=== PATIENT | female | born 1970 | race Caucasian/White ===

== ENCOUNTER 2019-03-08 08:53 | Emergency (ER) | payer OTHER ==
[~2019-03-08] VITALS: Ht 170.1 cm; Wt 68.0 kg
[~2019-03-08 08:53] MED LIST: ZOFRAN4 MG PO
[2019-03-08 09:41] LABS: BASO # 0.1 10*3/uL (0.0-0.1); BASO % 0.4 % (0.0-1.0); EOS % 0.2 % (1.0-4.0); HEMATOCRIT 43.6 % (37.0-47.0); HEMOGLOBIN 14.5 g/dl (12.0-16.0); LYMPH # 2.5 10*3/uL (1.3-4.4); LYMPH % 19.7 % (27.0-41.0); MEAN CORPUSCULAR HGB 30.3 pg (27.0-31.0); MEAN CORPUSCULAR HGB CONC 33.3 g/dl (33.0-37.0); MEAN PLATELET VOLUME 10.3 fl (9.6-12.3); MONO % 7.6 % (3.0-9.0); NEUT # 9.1 10*3/uL (2.3-7.9); NEUT % 71.6 % (47.0-73.0); PLATELET COUNT AUTOMATED 415 10*3/uL (130-400); RED BLOOD COUNT 4.79 10*6/uL (4.10-5.10); RED CELL DISTRI WIDTH 13.1 % (0-14.5); WHITE BLOOD COUNT 12.7 10*3/uL (4.8-10.8)
[2019-03-08 09:55] LABS: ALBUMIN 3.3 gm/dl (3.1-4.5); ALKALINE PHOSPHATASE 251 U/L (45-117); BUN 4 mg/dl (7-24); CHLORIDE 102 mmol/L (98-107); CREATININE 0.59 mg/dL (0.55-1.02); LIPASE 333 U/L (73-393); POTASSIUM 3.6 mmol/L (3.5-5.1); SGOT/AST 61 IU/L (3-35); SGPT/ALT 60 U/L (12-78); SODIUM 136 mmol/L (136-145); TOTAL PROTEIN 8.3 gm/dL (6.4-8.2)
[2019-03-08 11:01] LABS: BILIRUBIN NEGATIVE (NEGATIVE); BLOOD NEGATIVE (NEGATIVE); CLARITY SL CLOUDY (CLEAR); COLOR YELLOW (YELLOW); GLUCOSE NEGATIVE (NEGATIVE); KETONE NEGATIVE (NEGATIVE); LEUKO ESTERASE NEGATIVE (NEGATIVE); NITRITE NEGATIVE (NEGATIVE); PH 7.5 (5.0-9.0); SPECIFIC GRAVITY <= 1.005 (1.005-1.030)
[2019-03-08 11:20] LABS: BACTERIA 1+
[2019-03-08] MEDS ORDERED: ZOFRAN4 MG PO (11:44)
== END 2019-03-08 11:55 | disposition home or self-care (01) ==
LOC: ED 08:53
PROVIDERS: Physician Assistant
DX: R11.2 Nausea with vomiting, unspecified (principal); F10.10 Alcohol abuse, uncomplicated; R16.0 Hepatomegaly, not elsewhere classified; Y90.9 Presence of alcohol in blood, level not specified

== ENCOUNTER → 2019-04-10 | Outpatient (CLI) | payer OTHER ==
[2019-04-10 14:01] LABS: ALBUMIN 3.1 gm/dl (3.1-4.5); ALKALINE PHOSPHATASE 194 U/L (45-117); BUN 8 mg/dl (7-24); CHLORIDE 104 mmol/L (98-107); CHOLESTEROL 189 mg/dL (<200); CREATININE 0.79 mg/dL (0.55-1.02); HDL CHOLESTEROL 51 mg/dl (40-60); LDL CHOLESTEROL 111 mg/dL (9-159); SGOT/AST 95 IU/L (3-35); SGPT/ALT 90 U/L (12-78); SODIUM 137 mmol/L (136-145); TRIGLYCERIDES 133 mg/dl (<150); VLDL CHOLESTEROL 27 mg/dL (6-40)
== END | disposition home or self-care (01) ==
LOC: LAB 13:07
PROVIDERS: Registered Nurse Flight
DX: E78.2 Mixed hyperlipidemia (principal); R74.8 Abnormal levels of other serum enzymes

== ENCOUNTER 2020-03-26 11:43 | Inpatient (IN) | payer OTHER ==
[~2020-03-26] VITALS: Ht 170.1 cm; Wt 72.6 kg
[2020-03-26 11:50] VITALS: BP 139/80
--- NOTE | 2020-03-26 12:00 | NUR ---
PATIENT RESTING IN BED WITH NO VERBAL COMPLAINTS AT THIS TIME. WILL CONTINUE TO MONITOR. PT VISIBLE ON THE MONITOR.
--- NOTE | 2020-03-26 12:15 | NUR ---
PT REMAINS RESTING IN BED WITH NO VERBAL COMPLAINTS AT THIS TIME. WILL CONTINUE TO MONITOR.
--- NOTE | 2020-03-26 12:30 | NUR ---
PT REMAINS RESTING IN BED WITH NO VERBAL COMPLAINTS AT THIS TIME. VISIBLE ON THE MONITOR.
[2020-03-26 12:31] LABS: BASO # 0.1 10*3/uL (0.0-0.1); BASO % 0.6 % (0.0-1.0); EOS # 0.1 10*3/uL (0.0-0.4); EOS % 0.4 % (1.0-4.0); HEMATOCRIT 36.8 % (37.0-47.0); LYMPH # 2.1 10*3/uL (1.3-4.4); MEAN CELL VOLUME 89.8 fl (81.0-99.0); MEAN CORPUSCULAR HGB 31.5 pg (27.0-31.0); MEAN CORPUSCULAR HGB CONC 35.1 g/dl (33.0-37.0); MONO # 1.4 10*3/uL (0.1-1.0); MONO % 9.1 % (3.0-9.0); NEUT # 11.1 10*3/uL (2.3-7.9); NEUT % 74.4 % (47.0-73.0); PLATELET COUNT AUTOMATED 172 10*3/uL (130-400); RED CELL DISTRI WIDTH 23.1 % (0-14.5); WHITE BLOOD COUNT 14.9 10*3/uL (4.8-10.8)
[2020-03-26 12:44] LABS: ACT PARTIAL THROMBO TIME 31.4 SECONDS (20.0-32.1); INTERNATIONAL NORM RATIO 1.2 (2.0-3.5)
[2020-03-26 12:45] LABS: ALBUMIN 2.3 gm/dl (3.1-4.5); ALKALINE PHOSPHATASE 730 U/L (45-117); BUN 5 mg/dl (7-24); CHLORIDE 101 mmol/L (98-107); CREATININE 0.79 mg/dL (0.55-1.02); POTASSIUM 2.9 mmol/L (3.5-5.1); SGOT/AST 288 IU/L (3-35); SGPT/ALT 81 U/L (12-78); SODIUM 132 mmol/L (136-145); TOTAL PROTEIN 7.4 gm/dL (6.4-8.2)
--- NOTE | 2020-03-26 12:45 | NUR ---
PT PLEASANT/COOPERATIVE AT THIS TIME. IV INSERTED, 22 LEFT HAND. PT TOLERATED.CALL LIGHT WITHIN REACH. PT VISIBLE ON THE MONITOR AT THE NURSES STATION.
--- NOTE | 2020-03-26 13:00 | NUR ---
DR SCOTT IN ROOM WITH PATIENT, PT RESTING IN BED WITH NO VOICED COMPLAINTS. WILL CONTINUE TO MONITOR.
--- NOTE | 2020-03-26 13:15 | NUR ---
PT REMAINS RESTING IN BED WITH NO VOICED COMPLAINTS AT THIS TIME.
--- NOTE | 2020-03-26 13:30 | NUR ---
PT RESTING IN BED WITH CALL LOTT IN REACH. VISIBLE FROM THE MONITOR AT THE NURSES STATION.
--- NOTE | 2020-03-26 13:45 | NUR ---
PT RESTING WITH EYES CLOSED, WILL CONTINUE TO MONITOR.
[2020-03-26 14:00] VITALS: BP 140/78
--- NOTE | 2020-03-26 14:00 | NUR ---
PT RESTING IN BED WITH NO VOICED COMPLAINTS.
--- NOTE | 2020-03-26 14:15 | NUR ---
PT RESTING IN BED WITH NO VOICED COMPLAINTS AT THIS TIME.
--- NOTE | 2020-03-26 14:30 | NUR ---
NO CHANGE IN PT'S STATUS. VISIBLE FROM THE NURSES STATION.
--- NOTE | 2020-03-26 14:45 | NUR ---
PT GETTING READY TO BE MOVED UPSTAIRS, VOICED NO COMPLAINTS AT THIS TIME.
[2020-03-26 16:21] VITALS: BP 127/82
--- NOTE | 2020-03-26 19:10 | NUR ---
REPORT RECEIVED. PT LYING IN BED WATCING TV. IV FLUIDS INFUSING WITHOUT DIFFICULTY, CALL LIGHT IN REACH
[2020-03-26 20:00] VITALS: BP 115/75
--- NOTE | 2020-03-26 21:00 | NUR ---
IN TO SEE PT, NO COMPLAINTS. CALL LIGHT IN REACH
[2020-03-26 21:37] LABS: BILIRUBIN 2+; CLARITY Cloudy (Clear); COLOR Dark Yellow (Yellow); GLUCOSE Negative; KETONE Negative
[2020-03-26 21:38] LABS: BLOOD Negative (Negative); LEUKO ESTERASE 2+ (Negative); NITRITE Positive (Negative)
[2020-03-26 21:39] LABS: URINE AMPHETAMINES < 1000 (1000ng/ml); URINE BARBITURATES < 200 (200ng/ml); URINE BENZODIAZEPINES < 200 (200ng/ml); URINE CANNABINOIDS (THC) < 50 (50ng/ml); URINE COCAINE < 300 (300ng/ml); URINE METHADONE < 300 (300ng/ml); URINE OPIATES < 300 (300ng/ml)
[2020-03-26 21:43] LABS: URINE PHENCYCLIDINE < 25 (25ng/ml)
[2020-03-26 21:45] LABS: BACTERIA 4+; RBC 0-2 rbc/hpf (0-2); WBC TNTC wbc/hpf (0-5)
--- NOTE | 2020-03-26 23:00 | NUR ---
PT SLEEPING, CALL LIGHT IN REACH
--- NOTE | 2020-03-26 23:24 | NUR ---
24 HR chart check completed.
[2020-03-27] VITALS: BP 130/83
--- NOTE | 2020-03-27 02:00 | NUR ---
PT ASLEEP AT THIS TIME. NO S/S OF DISTRESS NOTED. CALL LIGHT IN REACH
--- NOTE | 2020-03-27 04:30 | NUR ---
IN TO PASS MORNING MEDICATIONS. PT C/O WEAKNESS UPON USING BATHROOM. STATES THAT SHE OTHERWISE FEELS OKAY. BEDSIDE COMMODE OFFERED. PT VOICES NO OTHER COMPLAINTS AT THIS TIME.
--- NOTE | 2020-03-27 05:27 | NUR ---
DR. DANGELO NOTIFIED THAT PT HR STILL IN 120'S AFTER ATIVAN TAPER DOSE. ORDERED TO GIVE IV ATVAN AT THIS TIME
--- NOTE | 2020-03-27 05:30 | NUR ---
PRN IV ATIVAN GIVEN FOR INCREASED HR AND VISABLE TREMORS. WILL MONITOR
--- NOTE | 2020-03-27 06:25 | NUR ---
IV ATIVAN HELPED
[2020-03-27 06:39] LABS: BASO # 0.1 10*3/uL (0.0-0.1); BASO % 0.8 % (0.0-1.0); EOS # 0.1 10*3/uL (0.0-0.4); EOS % 1.1 % (1.0-4.0); HEMATOCRIT 33.3 % (37.0-47.0); LYMPH # 1.3 10*3/uL (1.3-4.4); LYMPH % 11.3 % (27.0-41.0); MEAN CELL VOLUME 90.5 fl (81.0-99.0); MEAN CORPUSCULAR HGB 31.5 pg (27.0-31.0); MEAN CORPUSCULAR HGB CONC 34.8 g/dl (33.0-37.0); MEAN PLATELET VOLUME 9.9 fl (9.6-12.3); MONO # 1.1 10*3/uL (0.1-1.0); MONO % 9.2 % (3.0-9.0); NEUT # 8.7 10*3/uL (2.3-7.9); NEUT % 76.2 % (47.0-73.0); NUCLEATED RED BLOOD CELL 0.2 % (0.0-0.0); PLATELET COUNT AUTOMATED 152 10*3/uL (130-400); RED BLOOD COUNT 3.68 10*6/uL (4.10-5.10); RED CELL DISTRI WIDTH 23.7 % (0-14.5); WHITE BLOOD COUNT 11.4 10*3/uL (4.8-10.8)
[2020-03-27 07:04] LABS: ALBUMIN 2.1 gm/dl (3.1-4.5); ALKALINE PHOSPHATASE 640 U/L (45-117); BUN 5 mg/dl (7-24); CHLORIDE 105 mmol/L (98-107); CREATININE 0.76 mg/dL (0.55-1.02); LDH 462 U/L (84-246); SGOT/AST 247 IU/L (3-35); SGPT/ALT 66 U/L (12-78); SODIUM 135 mmol/L (136-145); TOTAL PROTEIN 6.7 gm/dL (6.4-8.2)
[2020-03-27 07:06] LABS: POTASSIUM 3.1 mmol/L (3.5-5.1)
--- NOTE | 2020-03-27 07:30 | NUR ---
PATIENT TAKEN TO RADIOLOGY DEPARTMENT.
[2020-03-27 08:00] VITALS: BP 140/82
--- NOTE | 2020-03-27 08:30 | NUR ---
PARACENTESIS UNABLE TO BE PERFORMED PER TRACHEA ONLY APPROXIMATELY 200 CC FLUID IF THAT.
--- NOTE | 2020-03-27 09:00 | NUR ---
case management attempted to visit with patient, patient was sleeping and did not want to talk with case management. case management will follow
--- NOTE | 2020-03-27 09:45 | NUR ---
MEDICATED WITH IV ATIVAN PER EARLIER OORDER FROM DR. MARIANO.
[2020-03-27 12:00] VITALS: BP 136/81
[2020-03-27 16:00] VITALS: BP 121/71
--- NOTE | 2020-03-27 19:10 | NUR ---
REPORT RECEIVED. PT ASLEEP AT THIS TIME. RESPIRATIONS EASY AND UNLABORED. NO S/S OF DISTRESS NOTED. CALL LIGHT IN REACH
[2020-03-27 20:00] VITALS: BP 120/77
--- NOTE | 2020-03-27 21:00 | NUR ---
IN TO SEE PT. PT VOICES NO COMPLAINTS AT THIS TIME
--- NOTE | 2020-03-27 21:18 | NUR ---
24 HR chart check completed.
[2020-03-27 23:40] VITALS: BP 129/91
--- NOTE | 2020-03-28 01:48 | NUR ---
DR. DANGELO NOTIFIED OF PT 8 BEAT RUN OF SVT. PT ASYMPTOMATIC. NO ORDERS AT THIS TIME.
--- NOTE | 2020-03-28 03:30 | NUR ---
PT SLEEPING AT THIS TIME. RESPIRATIONS EASY AND UNLABORED. NO S/S OF DISTRESS NOTED, CALL LIGHT IN REACH
--- NOTE | 2020-03-28 05:33 | NUR ---
IN TO PASS MORNING MEDICATIONS. PT AWAKENS EASILY. NO COMPLAINTS VOICED. CALL LIGHT IN REACH
[2020-03-28 06:18] LABS: BASO # 0.1 10*3/uL (0.0-0.1); EOS # 0.2 10*3/uL (0.0-0.4); EOS % 1.8 % (1.0-4.0); HEMATOCRIT 33.1 % (37.0-47.0); LYMPH # 1.6 10*3/uL (1.3-4.4); LYMPH % 14.7 % (27.0-41.0); MEAN CORPUSCULAR HGB 32.2 pg (27.0-31.0); MEAN CORPUSCULAR HGB CONC 34.1 g/dl (33.0-37.0); MEAN PLATELET VOLUME 10.6 fl (9.6-12.3); MONO # 1.2 10*3/uL (0.1-1.0); MONO % 10.9 % (3.0-9.0); NEUT # 7.8 10*3/uL (2.3-7.9); NEUT % 69.5 % (47.0-73.0); NUCLEATED RED BLOOD CELL 0.2 % (0.0-0.0); PLATELET COUNT AUTOMATED 148 10*3/uL (130-400); RED BLOOD COUNT 3.51 10*6/uL (4.10-5.10); RED CELL DISTRI WIDTH 25.2 % (0-14.5); WHITE BLOOD COUNT 11.2 10*3/uL (4.8-10.8)
[2020-03-28 06:19] LABS: BUN 5 mg/dl (7-24); CHLORIDE 105 mmol/L (98-107); CREATININE 0.66 mg/dL (0.55-1.02); POTASSIUM 3.3 mmol/L (3.5-5.1); SGOT/AST 212 IU/L (3-35); SGPT/ALT 57 U/L (12-78); SODIUM 136 mmol/L (136-145)
[2020-03-28 06:20] LABS: TOTAL PROTEIN 6.4 gm/dL (6.4-8.2)
[2020-03-28 06:36] LABS: ALKALINE PHOSPHATASE 575 U/L (45-117)
[2020-03-28 06:40] LABS: MEAN CELL VOLUME 94.3 fl (81.0-99.0)
[2020-03-28 08:00] VITALS: BP 129/78
--- NOTE | 2020-03-28 09:00 | NUR ---
case management visits with patient, she states she lives at home, is independent in adls and ambulation, she states she will return home when discharged and denies any home needs
[2020-03-28 09:09] LABS: HEP B CORE AB, IGM Negative (Negative); HEPATITIS B SURFACE AG Negative (Negative); HEPATITIS C VIRUS ANTIBODY <0.1 s/co (0.0-0.9)
[2020-03-28 12:00] VITALS: BP 135/66
--- NOTE | 2020-03-28 12:24 | NUR ---
[place] STAFF IN TO SEE PATIENT. PROVIDED PATIENT WITH A LIST OF REFERRAL OPTIONS. KRISHNA CARRIZALES B.A. SOFTWARE QUALITY ASSURANCE SPECIALIST
[2020-03-28 16:00] VITALS: BP 133/82
--- NOTE | 2020-03-28 19:10 | NUR ---
REPORT RECEIVED. PT ASLEEP AT THIS TIME. NO S/S OF DISTRESS NOTED. CALL LIGHT IN REACH
[2020-03-28 20:00] VITALS: BP 123/75
--- NOTE | 2020-03-28 20:00 | NUR ---
IN TO SEE PT. UPON ASSESSMENT, PT MENTIONS SHE STILL HAS NOT HAD A BM. STATED THAT IT HAD BEEN FIVE DAYS. PT OFFERED STOOL SOFTER OR LAXATIVE. SHE REFUSED. PT OFFERED PRUNE JUICE OR APPLE JUICE. SHE REFUSED. PT STATES "I DONT WANT ANYTHING. ILL GO TOMORROW." EDUCATED PT TO TRY TO GET UP AND MOVE AROUND AND EAT AND DRINK. PT STATED THAT SHE DIDNT "FEEL LIKE IT" AND WAS GOING BACK TO SLEEP AT THIS TIME.
--- NOTE | 2020-03-28 21:00 | NUR ---
PT HAS NO IV ACESS. PT IS REFUSING NURSE TO GET ACCESS AND IS ALSO REFUSING HEART MONITOR.
[2020-03-29] VITALS: BP 117/80
--- NOTE | 2020-03-29 00:30 | NUR ---
PT ALLOWED NURSE TO PUT HEART MONITOR BACK ON AT THIS TIME. STILL REFUSING IV ACCESS
--- NOTE | 2020-03-29 03:30 | NUR ---
PT ASLEEP AT THIS TIME
[2020-03-29 06:05] LABS: HEMATOCRIT 33.6 % (37.0-47.0); MEAN CELL VOLUME 95.5 fl (81.0-99.0); MEAN CORPUSCULAR HGB 32.4 pg (27.0-31.0); MEAN CORPUSCULAR HGB CONC 33.9 g/dl (33.0-37.0); MEAN PLATELET VOLUME 10.2 fl (9.6-12.3); NUCLEATED RED BLOOD CELL 0.2 % (0.0-0.0); PLATELET COUNT AUTOMATED 155 10*3/uL (130-400); RED BLOOD COUNT 3.52 10*6/uL (4.10-5.10); RED CELL DISTRI WIDTH 25.6 % (0-14.5); WHITE BLOOD COUNT 13.5 10*3/uL (4.8-10.8)
[2020-03-29 06:16] LABS: ALBUMIN 1.9 gm/dl (3.1-4.5); BUN 4 mg/dl (7-24); CHLORIDE 105 mmol/L (98-107); POTASSIUM 3.6 mmol/L (3.5-5.1); SODIUM 136 mmol/L (136-145)
[2020-03-29 06:20] LABS: ALKALINE PHOSPHATASE 541 U/L (45-117); CREATININE 0.57 mg/dL (0.55-1.02); SGOT/AST 189 IU/L (3-35); SGPT/ALT 51 U/L (12-78); TOTAL PROTEIN 6.4 gm/dL (6.4-8.2)
[2020-03-29 07:31] LABS: BASOPHILS 2 % (0-1); PLATELET SUFFICIENCY NORMAL (NORMAL); TARGET CELLS FEW; TOTAL CELLS COUNTED 100 #CELLS
--- NOTE | 2020-03-29 07:48 | NUR ---
24 HR CHART CHECK COMPLETE.
--- NOTE | 2020-03-29 08:30 | NUR ---
PT IS SITTING UP IN BED WATCHING TV AT THIS TIME. SHE STATES SHE IS FEELING FINE AND DENIES ANY TREMORS AND S/S OF WITHDRAWAL. RESPS ARE EASY AND NONLABORED. BED IS LOW, CALL LIGHT WITHIN REACH. WILL CONTINUE TO MONITOR.
[2020-03-29] MEDS ORDERED: ATARAX,VISTARIL50 MG PO (11:11)
[2020-03-29] MEDS ORDERED: FLUOXETINE HCL10 MG PO (11:11)
[2020-03-29] MEDS ORDERED: METOPROLOL SUCC25 M2 PO (11:12)
--- NOTE | 2020-03-29 11:30 | NUR ---
Discharge instructions reviewed with patient/family. Patient receptive and verbalizes understanding. Follow-up care arranged. Written instructions given to patient/family. TAMMY AG
== END 2020-03-29 11:30 | disposition home or self-care (01) | DRG 280 ==
LOC: ED 11:43 → 4E 13:36 → EDHOLD 13:36 → 4E 14:09
PROVIDERS: Emergency Medicine; Family Medicine; Student in an Organized Health Care Education/Training Program; ADMIT Internal Medicine; ATTEND Internal Medicine
DX: K70.31 Alcoholic cirrhosis of liver with ascites (principal); K72.00 Acute and subacute hepatic failure without coma; E43 Unspecified severe protein-calorie malnutrition; F14.10 Cocaine abuse, uncomplicated; F17.210 Nicotine dependence, cigarettes, uncomplicated; R79.89 Other specified abnormal findings of blood chemistry; E87.6 Hypokalemia; F33.2 Major depressive disorder, recurrent severe without psychotic features; F10.229 Alcohol dependence with intoxication, unspecified; F41.9 Anxiety disorder, unspecified; D68.9 Coagulation defect, unspecified; F10.239 Alcohol dependence with withdrawal, unspecified; R45.851 Suicidal ideations; K76.0 Fatty (change of) liver, not elsewhere classified; K80.20 Calculus of gallbladder without cholecystitis without obstruction; I51.7 Cardiomegaly; R65.11 Systemic inflammatory response syndrome (SIRS) of non-infectious origin with acute organ dysfunction; E87.1 Hypo-osmolality and hyponatremia; Z71.6 Tobacco abuse counseling; Z80.3 Family history of malignant neoplasm of breast; Z82.49 Family history of ischemic heart disease and other diseases of the circulatory system; Z68.25 Body mass index [BMI] 25.0-25.9, adult

== ENCOUNTER 2020-04-02 08:29 | Emergency (ER) | payer OTHER ==
[~2020-04-02] VITALS: Wt 77.1 kg
[~2020-04-02 08:29] MED LIST changes: +ATARAX,VISTARIL50 MG PO; +FLUOXETINE HCL10 MG PO; +METOPROLOL SUCC25 M2 PO
[2020-04-02 09:20] LABS: HEMATOCRIT 35.6 % (37.0-47.0); MEAN CELL VOLUME 94.9 fl (81.0-99.0); MEAN CORPUSCULAR HGB 32.5 pg (27.0-31.0); MEAN CORPUSCULAR HGB CONC 34.3 g/dl (33.0-37.0); MEAN PLATELET VOLUME 10.9 fl (9.6-12.3); PLATELET COUNT AUTOMATED 216 10*3/uL (130-400); RED BLOOD COUNT 3.75 10*6/uL (4.10-5.10); RED CELL DISTRI WIDTH 25.9 % (0-14.5); WHITE BLOOD COUNT 16.1 10*3/uL (4.8-10.8)
[2020-04-02 09:29] LABS: ACT PARTIAL THROMBO TIME 34.5 SECONDS (20.0-32.1); INTERNATIONAL NORM RATIO 1.4 (2.0-3.5)
[2020-04-02 09:37] LABS: CREATININE 1.58 mg/dL (0.55-1.02); TOTAL PROTEIN 6.5 gm/dL (6.4-8.2)
[2020-04-02 09:49] LABS: BASOPHILS 1 % (0-1); BURR CELLS FEW; PLATELET SUFFICIENCY NORMAL (NORMAL); POLYCHROMASIA SLIGHT; ROULEAUX SLIGHT; TARGET CELLS FEW; TOTAL CELLS COUNTED 100 #CELLS
== END 2020-04-02 20:17 | disposition short-term general hospital (02) ==
LOC: ED 08:29
PROVIDERS: Emergency Medicine
DX: K80.40 Calculus of bile duct with cholecystitis, unspecified, without obstruction (principal); F41.9 Anxiety disorder, unspecified; F17.200 Nicotine dependence, unspecified, uncomplicated; Z79.899 Other long term (current) drug therapy